=== PATIENT | female | born 1980 | race African-American/Black ===

== ENCOUNTER 2017-10-10 18:19 | Emergency (ER) | payer OTHER ==
[~2017-10-10] VITALS: Ht 162.6 cm; Wt 89.8 kg
[~2017-10-10 18:19] MED LIST: ACETAMINOPHEN-1 EAC1 PO; ACYCLOVIR 200200 MG PO; BACTRIM DS TAB1 EACH PO; CLOTRIMAZOLE 1%15 G1 TOP; FLAGYL500 MG PO; IBUPROFEN 800800 MG PO; LOPERAMIDE 2 MG2 MG PO; NOHOMEMEDICATIONS; ULTRAM 50MG TAB50 MG PO; ZOFRAN ODT4 MG PO
[2017-10-10 18:40] LABS: URINE BILIRUBIN NEGATIVE (Negative); URINE BLOOD 1+ (Negative); URINE COLOR YELLOW; URINE GLUCOSE-RANDOM* NEGATIVE (Negative); URINE KETONES NEGATIVE (Negative); URINE NITRITE NEGATIVE (Negative); URINE PROTEIN (DIPSTICK) NEGATIVE (Negative); URINE SPECIFIC GRAVITY <= 1.005 (1.005-1.035); URINE UROBILINOGEN 0.2 E.U./dl (0.2-1.0)
[2017-10-10 18:59] LABS: BACTERIA 1-9 Few /HPF (None Seen); CASTS None Seen /LPF (None Seen); CRYSTALS None Seen /LPF (None Seen); SQUAMOUS 4-10 Moderate /LPF (0-3); URINE RBC 0-2 Rare /HPF (0-2); URINE WBC 0-5 Rare /HPF (0-5)
[2017-10-10] MEDS ORDERED: FLAGYL500 MG PO (19:27)
[2017-10-10] MEDS ORDERED: KEFLEX500 M1 PO (19:34)
[2017-10-10 19:39] VITALS: BP 142/80
[2017-10-13 16:11] LABS: CHLAMYDIA TRACHOMATIS-PCR Negative (Negative); NEISSERIA GONORRHEA-PCR Negative (Negative)
== END 2017-10-10 19:38 | disposition home or self-care (01) ==
LOC: ER 18:19
PROVIDERS: Nurse Practitioner
DX: N39.0 Urinary tract infection, site not specified (principal); A59.9 Trichomoniasis, unspecified; J45.909 Unspecified asthma, uncomplicated